=== PATIENT | male | born 1990 | race Two or more races ===

== ENCOUNTER 2020-10-04 06:09 | Emergency (ER) | payer SELFPAY ==
[2020-10-04] MEDS ORDERED: Ondansetron 4 MG/2 ML SDV IVPUSH ONE (06:24)
[2020-10-04] MEDS ORDERED: Sodium Chloride 0.9% 10 ML Syringe FLUSH PRN (06:24)
[2020-10-04] MEDS ORDERED: HYDROmorphone 1 MG/ML Syringe IVPUSH ONE (06:26)
[2020-10-04] MEDS ORDERED: Ketorolac 30 MG/ML SDV IVPUSH ONE (06:26)
--- NOTE | 2020-10-04 06:29 | EDM.PDOC ---
<ImankateRajeshMerrill - Last Filed: 10/04/20 06:30> ED HPI GENERAL MEDICAL PROBLEM - General Chief Complaint: Abdominal Pain Stated Complaint: RT SIDE PAIN Time Seen by Provider: 10/04/20 06:24 Source of Information: Reports: Patient History Limitations: Reports: Language Barrier (Friend here to interpret) - History of Present Illness INITIAL COMMENTS - FREE TEXT/NARRATIVE: The patient presents with right flank and right sided abdominal pain. This started last night at 2300. He also has nausea and vomiting. He denies any dysuria, hematuria or diarrhea. He has no history of kidney stones. He has no fever, chills, cough, chest pain or shortness of breath. Onset: Sudden Duration: Day(s): (last night at 2300) Location: Reports: Abdomen, Back Quality: Reports: Sharp Severity: Severe Improves with: Reports: None, Medication Associated Symptoms: Reports: Nausea/Vomiting. Denies: Chest Pain, Cough, Fever/Chills, Headaches, Shortness of Breath Right Upper Abdomen Pain Score (Numeric/FACES): 9 - Related Data Allergies Allergy/AdvReac Type Severity Reaction Status Date / Time No Known Allergies Allergy Verified 10/04/20 06:20 Home Meds: Home Meds Cefdinir 300 mg PO BID #14 capsule 10/04/20 [Rx] Hydrocodone/Acetaminophen [HYDROcodone-Acetaminophen 5-325 MG] 1 - 2 each PO Q6H #14 tab 10/04/20 [Rx] Ondansetron [Ondansetron ODT] 4 mg PO Q6H PRN #10 tab.rapdis 10/04/20 [Rx] Past Medical History - Past Surgical History GI Surgical History: Reports: Hernia, Inguinal Social & Family History - Tobacco Use Tobacco Use Status *Q: Unknown Ever Used Tobacco ED ROS GENERAL - Review of Systems Review Of Systems: See Below Constitutional: Reports: No Symptoms HEENT: Reports: No Symptoms Respiratory: Reports: No Symptoms Cardiovascular: Reports: No Symptoms Endocrine: Reports: No Symptoms GI/Abdominal: Reports: Abdominal Pain, Nausea, Vomiting. Denies: Diarrhea : Reports: Flank Pain (right). Denies: Dysuria, Hematuria Musculoskeletal: Reports: Back Pain (right) ED EXAM, GI/ABD - Physical Exam Exam: See Below Exam Limited By: No Limitations General Appearance: Alert, No Apparent Distress Ears: Normal External Exam Nose: Normal Inspection Head: Atraumatic, Normocephalic Neck: Normal Inspection Respiratory/Chest: No Respiratory Distress, Lungs Clear, Normal Breath Sounds Cardiovascular: Regular Rate, Rhythm, No Edema, No Murmur GI/Abdominal Exam: Soft, Non-Tender, No Organomegaly, No Mass Back Exam: CVA Tenderness (R) Extremities: Normal Inspection Course - Re-Assessments/Exams Free Text/Narrative Re-Assessment/Exam: 10/04/20 06:30 I ordered an IV NS at 125mL/hr, zofran 4mg IV, toradol 30mg IV, dilaudid 1mg IV, labs, UA and a CT of his abdomen and pelvis without contrast to look for a stone. Departure - Departure Disposition: Home, Self-Care 01 Clinical Impression: Abdominal pain, Urinary tract infection - Discharge Information Prescriptions: Cefdinir 300 mg PO BID #14 capsule Hydrocodone/Acetaminophen [HYDROcodone-Acetaminophen 5-325 MG] 1 - 2 each PO Q6H #14 tab Ondansetron [Ondansetron ODT] 4 mg PO Q6H PRN #10 tab.rapdis PRN Reason: Nausea/Vomiting Referrals: PCP,None [Primary Care Provider] - Forms: ED Department Discharge Additional Instructions: Return to the emergency room with any questions problems or worsening symptoms. Return in 24 hours if not improving return immediately if getting worse. You have been started on 3 medications the first 1 is cefdinir, this is an antibiotic take 1 twice daily until gone. The second is Zofran, this is a nausea medication use 1 every 6 hours as needed for nausea and vomiting. The third 1 is hydrocodone take 1 or 2 every 6 hours only if absolutely necessary for pain. This medication can cause constipation so take a good stool softener with it. All 3 of these medications have been sent electronically to the [facility] in the [employer] [facility]. Clear liquid diet today. Then slowly advance as tolerated tomorrow. Follow-up in the hospital clinic early next week for recheck. [phone] Sepsis Event Note (ED) - Evaluation Sepsis Screening Result: No Definite Risk <Eben Awan - Last Filed: 10/04/20 08:30> Course - Vital Signs Last Recorded V/S: Last Vital Signs Temp 36.1 C 10/04/20 06:20 Pulse 65 10/04/20 06:20 Resp 15 10/04/20 06:20 BP 128/81 10/04/20 06:20 Pulse Ox 99 10/04/20 06:20 - Orders/Labs/Meds Orders: Active Orders 24 hr Category Date Time Status Peripheral IV Care [RC] . DIRECTED Care 10/04/20 06:25 Active CULTURE URINE [MREF] Stat Lab 10/04/20 08:18 Ordered Sodium Chloride 0.9% [Normal Saline] 1,000 ml Med 10/04/20 06:30 Active IV ASDIRECTED Sodium Chloride 0.9% [Saline Flush] Med 10/04/20 06:24 Active 10 ml FLUSH ASDIRECTED PRN ED Antiemetic Medication Reflex [OM.PC] Stat Oth 10/04/20 06:25 Ordered Peripheral IV Insertion Adult [OM.PC] Stat Oth 10/04/20 06:24 Ordered Medication Orders Sodium Chloride (Normal Saline) 1,000 mls @ 125 mls/hr IV ASDIRECTED MOLLY Last Admin: 10/04/20 06:36 Dose: 125 mls/hr Documented by: ALEJANDRO Sodium Chloride (Sodium Chloride 0.9% 10 Ml Syringe) 10 ml FLUSH ASDIRECTED PRN PRN Reason: Keep Vein Open Last Admin: 10/04/20 06:36 Dose: 10 ml Documented by: ALEJANDRO Labs: Laboratory Tests 10/04/20 10/04/20 10/04/20 Range/Units 06:25 06:25 07:30 WBC 8.03 (4.23-9.07) K/mm3 RBC 4.73 (4.63-6.08) M/mm3 Hgb 14.0 (13.7-17.5) gm/dl Hct 41.7 (40.1-51.0) % MCV 88.2 (79.0-92.2) fl MCH 29.6 (25.7-32.2) pg MCHC 33.6 (32.2-35.5) g/dl RDW Std Deviation 41.1 (35.1-43.9) fL Plt Count 269 (163-337) K/mm3 MPV 10.8 (9.4-12.3) fl Neut % (Auto) 76.1 H (34.0-67.9) % Lymph % (Auto) 13.9 L (21.8-53.1) % [place] % (Auto) 8.2 (5.3-12.2) % Eos % (Auto) 1.1 (0.8-7.0) Baso % (Auto) 0.5 (0.1-1.2) % Neut # (Auto) 6.10 H (1.78-5.38) K/mm3 Lymph # (Auto) 1.12 L (1.32-3.57) K/mm3 [place] # (Auto) 0.66 (0.30-0.82) K/mm3 Eos # (Auto) 0.09 (0.04-0.54) K/mm3 Baso # (Auto) 0.04 (0.01-0.08) K/mm3 Sodium 141 (136-145) mEq/L Potassium 3.9 (3.5-5.1) mEq/L Chloride 104 (98-107) mEq/L Carbon Dioxide 26 (21-32) mEq/L Anion Gap 14.9 (5-15) BUN 11 (7-18) mg/dL Creatinine 0.8 (0.7-1.3) mg/dL Est Cr Clr Drug Dosing TNP Estimated GFR (MDRD) > 60 (>60) mL/min BUN/Creatinine Ratio 13.8 L (14-18) Glucose 137 H (70-99) mg/dL Calcium 8.4 L (8.5-10.1) mg/dL Total Bilirubin 2.3 H (0.2-1.0) mg/dL AST 212 H (15-37) U/L ALT 221 H (16-63) U/L Alkaline Phosphatase 94 (46-116) U/L Total Protein 7.4 (6.4-8.2) g/dl Albumin 3.9 (3.4-5.0) g/dl Globulin 3.5 gm/dL Albumin/Globulin Ratio 1.1 (1-2) Lipase 115 (73-393) U/L Urine Color Yellow (Yellow) Urine Appearance Clear (Clear) Urine pH 7.5 (5.0-8.0) Ur Specific [place] 1.025 (1.005-1.030) Urine Protein 1+ H (Negative) Urine Glucose (UA) Negative (Negative) Urine Ketones Negative (Negative) Urine Occult Blood Negative (Negative) Urine Nitrite Negative (Negative) Urine Bilirubin 1+ H (Negative) Urine Urobilinogen 2.0 H (0.2-1.0) Ur Leukocyte Esterase 1+ H (Negative) Urine RBC 5-10 H (0-5) /hpf Urine WBC 5-10 H (0-5) /hpf Ur Epithelial Cells 0-5 (0-5) /hpf Urine Bacteria Many H (FEW) /hpf Urine Mucus Many H (FEW) /hpf Meds: Medications Generic Name Dose Route Start Last Admin Trade Name Freq PRN Reason Stop Dose Admin Sodium Chloride 1,000 mls @ 125 mls/hr 10/04/20 06:30 10/04/20 06:36 Normal Saline IV 125 mls/hr ASDIRECTED MOLLY Administration Sodium Chloride 10 ml 10/04/20 06:24 10/04/20 06:36 Sodium Chloride 0.9% 10 Ml Syringe FLUSH 10 ml ASDIRECTED PRN Administration Keep Vein Open Discontinued Medications Generic Name Dose Route Start Last Admin Trade Name Freq PRN Reason Stop Dose Admin Hydromorphone HCl 1 mg 10/04/20 06:26 10/04/20 06:36 Hydromorphone 1 Mg/Ml Syringe IVPUSH 10/04/20 06:27 1 mg ONETIME ONE Administration Ketorolac Tromethamine 30 mg 10/04/20 06:26 10/04/20 06:36 Ketorolac 30 Mg/Ml Sdv IVPUSH 10/04/20 06:27 30 mg ONETIME ONE Administration Ondansetron HCl 4 mg 10/04/20 06:24 10/04/20 06:36 Ondansetron 4 Mg/2 Ml Sdv IVPUSH 10/04/20 06:25 4 mg ONETIME ONE Administration - Re-Assessments/Exams Free Text/Narrative Re-Assessment/Exam: 10/04/20 08:[address] is negative for any acute changes no evidence of a kidney stone. Urinalysis is possibly suggestive of UTI. The patient will be started on antibiotics. The patient is pain-free at this time. In case his pain returns I will give give a few [place] and Zofran to use as needed. The patient understands in no uncertain terms that he is to return to the emergency room in 24 hours if not improving sooner if getting worse. Departure - Departure Time of Disposition: 08:27 Sepsis Event Note (ED) - Focused Exam Vital Signs: Vital Signs Temp Pulse Resp BP Pulse Ox 10/04/20 06:20 36.1 C 65 15 128/81 99 - My Orders Last 24 Hours: My Active Orders 10/04/20 08:18 CULTURE URINE [MREF] Stat - Assessment/Plan Last 24 Hours: My Active Orders 10/04/20 08:18 CULTURE URINE [MREF] Stat
[2020-10-04] MEDS ORDERED: Sodium Chloride 0.9% 1,000 ML IV SCH (06:30)
--- NOTE | 2020-10-04 07:08 | CT ---
CT abdomen and pelvis Technique: Multiple axial sections were obtained from above the dome of the diaphragm inferiorly through the pubic symphysis. Intravenous and oral contrast were not utilized. Study has been performed as a ureteral stone protocol. Reconstructed coronal and sagittal images were obtained. Comparison: No prior abdominal imaging is available. Findings: Kidneys show no abnormal calcifications. No dilatation of the collecting system or ureters are seen. No abnormal calcifications are noted along the course of the ureters. Visualized lung bases show nothing acute. Liver contains no focal parenchymal abnormality. Spleen size is normal. Gallbladder contains no calcified gallstones. Pancreas is within normal limits. Abdominal aorta shows no aneurysm. No retroperitoneal adenopathy or mesenteric abnormalities are seen. Appendix is seen which is normal. No pelvic mass or adenopathy is seen. No free fluid or inflammatory change is seen. No bowel dilatation is appreciated. Bone window settings were reviewed which show no acute osseous abnormality. Impression: 1. No renal calculi, ureteral dilatation or ureteral stone is seen. 2. Nothing acute is appreciated on noncontrast CT study of the abdomen and pelvis. Diagnostic code #1
== END 2020-10-04 08:40 | disposition home or self-care (01) ==
LOC: JD.ED 06:09
DX: N39.0 Urinary tract infection, site not specified (principal)
CPT/HCPCS: 36415; 74176; 80053; 81001; 83690; 85025; 87086; 96374; 96375; 99284; J1170; J1885; J2405; J7030; 99283

== ENCOUNTER 2021-07-07 02:33 | Emergency (ER) | payer SELFPAY ==
[2021-07-07] MEDS ORDERED: Ondansetron 4 MG/2 ML SDV IVPUSH ONE (03:02)
[2021-07-07] MEDS ORDERED: HYDROmorphone 1 MG/ML Syringe IVPUSH STA (03:02)
[2021-07-07] MEDS ORDERED: Sodium Chloride 0.9% 1,000 ML IV SCH (03:15)
[2021-07-07] MEDS ORDERED: HYDROmorphone 1 MG/ML Syringe IVPUSH ONE (04:17)
== END 2021-07-07 05:04 | disposition home or self-care (01) ==
LOC: JD.ED 02:33
DX: R10.11 Right upper quadrant pain (principal); R10.31 Right lower quadrant pain; R11.2 Nausea with vomiting, unspecified; Z28.311 Partially vaccinated for COVID-19
CPT/HCPCS: 36415; 74177; 76705; 80053; 83690; 85007; 85027; 96361; 96374; 96375; 96376; 99284; J1170; J2405; J7030